=== PATIENT | female | born 1960 | race Caucasian/White ===

== ENCOUNTER → 2016-08-24 | Outpatient (CLI) | payer BC ==
--- NOTE | 2016-08-25 05:59 | RADIOLOGY REPORT PS360 ---
EXAM: LUMBAR SPINE 5 VIEWS HISTORY: ACUTE RIGHT SIDE LBP ORDERING PHYSICIAN: David Griffin MD PATIENT AGE: 55 years COMPARISON: None FINDINGS: Normal alignment. No fracture or dislocation. No lytic or blastic change. Degenerative disc disease with mild facet arthritic change L5-S1 Scattered small anterior osteophytes. Incidental 4 mm stone overlying the lower pole the left kidney. Mild degenerative change changes SI joints. IMPRESSION: 1. Degenerative disc disease with mild facet arthritic change L5-S1. 2. Mild degenerative changes SI joints. 3. Left nephrolithiasis
== END ==
LOC: RAD 17:24
DX: M54.5 Low back pain (principal)

== ENCOUNTER → 2017-05-14 | Outpatient (CLI) | payer BC ==
--- NOTE | 2017-05-18 12:19 | RADIOLOGY REPORT PS360 ---
MRI-LOW EXT ANY JOINT W/O-RT MRI RIGHT ANKLE HISTORY: RIGHT ANKLE PAIN, UNSPECIFIED CHRONICITY Patient Age: 56 years: Female Ordering Physician: David Griffin MD TECHNIQUE: Multiplanar multisequence imaging performed on 1.5 T MR COMPARISON :Plain films right ankle FINDINGS Abnormal signal seen throughout the tibialis posterior tendon just inferior to the medial malleolus, which continuesto its insertion upon the medial navicular. Appears to be a prominent split tear tibialis posterior tendon. This is nicely seen axial images as well as the other projections. Fluid surrounds the tendon particularly. This is particular evident just inferior to the medial malleolus... On closer inspection note very minor minor reactive bone at the medial margin of the navicular at distended insertion associated with this injury.. On sagittal image 20 is initially question partial transverse tear tendon at the navicular insertion but on subsequent images 18 and 19 I believe the tendon does remain intact at this point. Thus findings overall favor longitudinal split tear with abnormal signal throughout the tendon. There is soft tissue edema throughout the medial ankle overlying this region. There is also increased fluid along the flexor hallucis longus tendon posteriorly. But the FHL appears to be intact with normal signal in the tendon throughout. However this could reflect tenosynovitis here. Correlation required the overall pattern proximal to this point. With edema and tendinopathy at its insertion accounting for this appearance there is likely interstitial split tear at the tibialis posterior tendon with increased signal within the tendon and with increased fluid surrounding this tendon Osseous structures appear intact at the ankle. Ankle mortise well-maintained. Specifically the talar dome and talar region appears satisfactory.Subtalar fat normal with no good evidence sinus tarsi findings associated. IMPRESSION: 1. Abnormal tibialis posterior tendon. Appears to be longitudinal split tear which begins just inferior to the medial malleolus & continues to its navicular insertion. Focal Fluid surrounding this abnormal signal tibialis posterior tendon associated. 2. The ankle joint itself appears intact. No fracture. Dome of talus intact. Subtalar joint unremarkable. 3. Increased fluid surrounding intact flexor hallucis longus tendon posterior to the ankle additionally noted. Nonspecific. Tendon appears intact but this could reflect tenosynovitis here
== END ==
LOC: RAD 12:43
DX: M25.571 Pain in right ankle and joints of right foot (principal)

== ENCOUNTER → 2017-05-31 | Outpatient (CLI) | payer BC ==
[~2017-05-31] MED LIST: I COOL; [UNRECOGNIZED DRUG - OTHER]
[2017-05-31 09:09] LABS: HEMOGLOBIN 13.1 g/dL (12.2-16.2); LYMPH # 2.2 K/mm3 (0.7-4.5); LYMPH % 30.5 % (10-50.0)
--- NOTE | 2017-05-31 09:24 | RADIOLOGY REPORT PS360 ---
CHEST(2 VIEWS-NOT PORTABLE) HISTORY: PRE-OP ORDERING PHYSICIAN: SAMMY KEVIN DPM PATIENT AGE: 56 years COMPARISON: 04/14/2012 FINDINGS: The cardiomediastinal silhouette and pulmonary vascularity are within normal limits. The lungs are clear without infiltrates, suspicious nodules, or pleural effusions. No acute bony abnormalities. Increased markings are present in the right lung base probably related to a pericardial fat pad There is calcified granuloma in the left upper lobe. IMPRESSION: Old granulomatous disease, no change with no acute finding
[2017-05-31 10:50] LABS: BUN 15 mg/dL (7-18)
[2017-05-31 11:00] LABS: GFR (ESTIMATED) 65 ML/MIN (59-)
== END ==
LOC: LAB 08:34
PROVIDERS: Podiatrist
DX: M76.821 Posterior tibial tendinitis, right leg (principal); Z01.812 Encounter for preprocedural laboratory examination